=== PATIENT | male | born 1990 | race Caucasian/White ===

== ENCOUNTER 2018-08-22 16:42 | Emergency (ER) | payer BC ==
[2018-08-22 16:46] VITALS: BP 117/72; PULSE 76; TEMP 98.2; BMI 20.9
--- NOTE | 2018-08-22 17:23 | PDOC ---
Attending Attestation - Resident Resident Name: Nicki Nicole - ED Attending Attestation I have performed the following: I have examined & evaluated the patient, The case was reviewed & discussed with the resident, I agree w/resident's findings & plan, Exceptions are as noted - HPI HPI: Patient walked in complaining of left testicular pain 08/22/18 18:23 - Physicial Exam PE: Tenderness and swelling of left epididmus with fluctuation both scrotum No CVA tendernes 08/22/18 18:35 - Medical Decision Making iv fluids and antibiotics given 08/22/18 18:36
[2018-08-22 17:53] LABS: URINE APPEARANCE Clear; URINE BILIRUBIN Negative (NEGATIVE); URINE COLOR Yellow; URINE GLUCOSE (UA) Negative (NEGATIVE); URINE KETONE Negative (NEGATIVE); URINE LEUK ESTERASE Negative (NEGATIVE); URINE NITRITE Negative (NEGATIVE); URINE PROTEIN Negative (NEGATIVE)
[2018-08-22 17:56] LABS: BASO % 0.3 % (0-2.0); EOS % 1.6 % (0-4.5); HEMATOCRIT 45.2 % (35.4-49); HEMOGLOBIN 15.1 GM/dl (11.7-16.9); LYMPH % 13.7 % (8-40); MCHC 33.4 g/dl (32.0-35.9); MEAN CELL VOLUME 86.9 fl (80-96); MEAN PLT VOLUME 8.3 fl (7.5-11.1); MONO % 7.7 % (3.8-10.2); NEUT % 76.7 % (42.8-82.8); PLATELET COUNT 388 K/MM3 (134-434); RDW 12.8 % (11.9-15.9); WHITE BLOOD COUNT 14.5 K/mm3 (4.0-10.8)
[2018-08-22] MEDS ORDERED: KETOROLAC TROMETHAMINE 30 MG/1 ML VIAL ONE (17:57)
[2018-08-22] MEDS ORDERED: CEFTRIAXONE 1,000 MG in DEXTROSE 5%-WATER - 50 ML IVPB ONE (17:58)
[2018-08-22] MEDS ORDERED: KETOROLAC TROMETHAMINE 30 MG/1 ML VIAL IVPUSH ONE (17:58)
[2018-08-22] MEDS ORDERED: DOXYCYCLINE INJECTION 100 MG in DEXTROSE 5%-WATER - 100 ML IVPB ONE (17:59)
[2018-08-22] MEDS ORDERED: AZITHROMYCIN IVPB 500 MG in DEXTROSE 5%-WATER - 250 ML IVPB ONE (17:59)
[2018-08-22] MEDS ORDERED: SODIUM CHLORIDE 1,000 ML IV SCH (18:00)
[2018-08-22] MEDS ORDERED: cefTRIAXone SODIUM 1 GM VIAL ONE (18:10)
[2018-08-22] MEDS ORDERED: DOXYCYCLINE HYCLATE 100 MG VIAL ONE (18:10)
[2018-08-22] MEDS ORDERED: AZITHROMYCIN 500 MG VIAL IVPB ONE (18:10)
[2018-08-22 18:13] LABS: ALK PHOS 58 U/L (32-92); ANION GAP 8 MMOL/L (8-16); BILIRUBIN,TOTAL 1.2 mg/dl (0.2-1.0); BLOOD UREA NITROGEN 15 mg/dl (7-18); CALCIUM 8.7 mg/dl (8.4-10.2); CHLORIDE 99 mmol/L (98-107); CO2 28 mmol/L (22-28); CREATININE 1.1 mg/dl (0.6-1.3); GLUCOSE,RANDOM 97 mg/dl (74-106); POTASSIUM 4.3 mmol/L (3.5-5.1); SGOT/AST 28 U/L (10-42); SGPT/ALT 49 U/L (10-40); SODIUM 135 mmol/L (136-145); TOT PROT 7.4 g/dl (6.4-8.3); URINE RBC 20-40 /hpf (0-3); URINE WBC 0-2 (0-2)
[2018-08-22] MEDS ORDERED: AZITHROMYCIN 500 MG TABLET PO ONE (18:21)
[2018-08-22] MEDS ORDERED: morphine CARPU-JECT 4 MG/1 ML DISP.SYRIN IVPUSH ONE (18:42)
--- NOTE | 2018-08-22 18:45 | PDOC ---
History of Present Illness - General Chief Complaint: Pain Stated Complaint: TESTICULAR, ABD PAIN Time Seen by Provider: 08/22/18 17:32 Past History - Past Medical History Allergies/Adverse Reactions: Allergies Allergy/AdvReac Type Severity Reaction Status Date / Time No Known Allergies Allergy Verified 08/22/18 16:43 Home Medications: Ambulatory Orders Doxycycline Monohydrate [Mondoxyne Nl] 100 mg PO BID 10 Days #20 capsule COPD: No CHF: No Other medical history: PT DENIES - Suicide/Smoking/Psychosocial Hx Smoking History: Never smoked Have you smoked in the past 12 months: No Information on smoking cessation initiated: No Hx Alcohol Use: ("rarely") *Physical Exam - Vital Signs Last Vital Signs Temp Pulse Resp BP Pulse Ox 98.2 F 76 18 117/72 99 08/22/18 16:42 08/22/18 16:42 08/22/18 16:42 08/22/18 16:42 08/22/18 16:42 ED Treatment Course - LABORATORY CBC & Chemistry Diagram: 08/22/18 17:30 08/22/18 17:30 - ADDITIONAL ORDERS Additional order review: Laboratory Results 08/22/18 08/22/18 17:30 17:30 Sodium 135 L Potassium 4.3 Chloride 99 Carbon Dioxide 28 Anion Gap 8 BUN 15 Creatinine 1.1 Creat Clearance w eGFR > 60 Random Glucose 97 Calcium 8.7 Total Bilirubin 1.2 H AST 28 ALT 49 H Alkaline Phosphatase 58 Total Protein 7.4 Albumin 4.0 Urine Color Yellow Urine Appearance Clear Urine pH 7.0 Ur Specific [place] 1.020 Urine Protein Negative Urine Glucose (UA) Negative Urine Ketones Negative Urine Blood 3+ H Urine Nitrite Negative Urine Bilirubin Negative Urine Urobilinogen 1.0 Ur Leukocyte Esterase Negative Urine RBC 20-40 Urine WBC 0-2 08/22/18 17:30 RBC 5.20 MCV 86.9 MCHC 33.4 RDW 12.8 MPV 8.3 Neutrophils % 76.7 Lymphocytes % 13.7 Monocytes % 7.7 Eosinophils % 1.6 Basophils % 0.3 - Medications Given in the ED: ED Medications Discontinued Medications Generic Name Dose Route Start Last Admin Trade Name Freq PRN Reason Stop Dose Admin Ketorolac Tromethamine 30 mg 08/22/18 17:58 08/22/18 18:06 Toradol Injection - IVPUSH 08/22/18 17:59 30 mg ONCE ONE Administration *DC/Admit/Observation/Transfer Diagnosis at time of Disposition: Epididymitis, Left testicular pain - Discharge Dispostion Disposition: HOME Condition at time of disposition: Stable Decision to Admit order: No - Prescriptions Prescriptions: Doxycycline Monohydrate [Mondoxyne Nl] 100 mg PO BID 10 Days #20 capsule - Referrals - Patient Instructions Printed Discharge Instructions: DI for Epididymitis Additional Instructions: You were seen in the ED for complaints of L testicular pain. In the ED you were evaluated with labwork. Your results were significant for elevated WBC and some blood in the urine. There does not appear to be an acute need for immediate hospitalization. However, it is advised that you follow up with a Primary Care Physician and Urologist with 1 week. You were given a referral to both a primary care physician and urologist. Please follow up with them as mentioned above. You were given a prescription for antibiotics. Please take the antibiotics twice a day for 10 days. Return to the ED immediately if you experience worsening L testicular pain, fever, abdominal pain, nausea, vomiting, diarrhea or constipation. - Post Discharge Activity Forms/Work/School Notes: Back to Work
[2018-08-22] MEDS ORDERED: AZITHROMYCIN 500 MG TABLET ONE (18:48)
[2018-08-22] MEDS ORDERED: morphine SULFATE 4 MG/ML VIAL ONE (19:02)
== END 2018-08-22 19:00 | disposition home or self-care (01) ==
LOC: FER 16:42
PROC: 3E03329 Introduction of Other Anti-infective into Peripheral Vein, Percutaneous Approach (ICD-10-PCS; principal; 2018-08-22)
PROC: 3E033NZ Introduction of Analgesics, Hypnotics, Sedatives into Peripheral Vein, Percutaneous Approach (ICD-10-PCS; 2018-08-22)
PROC: 3E0333Z Introduction of Anti-inflammatory into Peripheral Vein, Percutaneous Approach (ICD-10-PCS; 2018-08-22)
DX: N45.1 Epididymitis (principal); N50.812 Left testicular pain
CPT/HCPCS: 36415; 76870-TC; 80053; 81003; 81015; 85025; 86593; 87086; 87491; 87591; 99283-25; J7030